=== PATIENT | male | born 1955 | race Caucasian/White ===

== ENCOUNTER 2017-01-01 07:00 | Day surgery (SDC) | payer OTHER ==
[~2017-01-01] VITALS: Ht 180.3 cm; Wt 94.8 kg
[~2017-01-01 07:00] MED LIST: TYLENOL WITH C1 EACH PO
--- NOTE | 2017-01-01 12:52 | NUR ---
01/01/17 Rosaura2 Gerardo Alcala 3 VIEW X-RAY OF THE LEFT FOOT DONE IN PACU.
--- NOTE | 2017-01-01 12:53 | NUR ---
PT RESTING IN BED, ALERT AND ORIENTED. HIS ZEYNEP IS IN SUPPORT. THEY BOTH SEEMED PREPARED, PT SAID HE WAITED TOO LONG. KNOWS HE WILL BE LAID UP FOR SOME TIME WITH BUNIONECTOMY. REQUESTED PRAYER, WILL FOLLOW NEEDED
--- NOTE | 2017-01-08 10:01 | OR ---
[facility] [address], [place] [address] Signed DATE OF PROCEDURE: 01/01/17 OPERATING SURGEON: Jack Beaver DPM. SERVICE DESK LEAD SURGEON: Lorraine Chen DPM. PREOPERATIVE DIAGNOSIS: Hallux valgus with bunion deformity, left foot. POSTOPERATIVE DIAGNOSIS: Hallux valgus with bunion deformity, left foot. ANESTHESIA: IV general. ASSOCIATE VETERINARIAN: Wiley Riley CRNA. SPECIMEN TO PATHOLOGY: None. PROCEDURE PERFORMED: Lapidus-type Bunionectomy, left foot. DESCRIPTION OF PROCEDURE The patient was brought to the operating room and placed on the table in the supine position. A regional block in the left lower extremity had already been performed. Anesthesia department administered IV sedation and then a local block was given to the left foot using a total of 10 mL of 1:1 mixture, 0.5% Ropivacaine plain and 2% Lidocaine plain. The left leg and foot were then prepped and draped in the usual sterile manner and an Esmarch was used for hemostasis. Attention was initially directed to the dorsal/medial aspect of the left 1st metatarsophalangeal joint where a linear longitudinal incision was made starting on the hallux and extending up to the midfoot just past the 1st metatarsal-cuneiform joint. The incision was initially full-thickness through the dermis, distally 1 cm medial to the extensor hallucis longus tendon at the MPJ level and shifting over to be approximately adjacent to the tendon at the proximal end of the incision. The dissection was deepened through subcutaneous tissue using careful dissection and cautery as necessary for hemostasis. Once at the level of joint capsule and deep fascia at the 1st metatarsophalangeal joint, an incision was made to open the joint. The soft tissues were then reflected medially to expose the medial bony prominence at the 1st metatarsal head and power instrumentation was then used to resect the bony prominence at this site removing approximately 2 mm of bone. At this time, the attention was directed to the 1st intermetatarsal space where a lateral release was performed. This appeared to provide a significant amount of correction for the very tight position at the joint with the hallux valgus position. Electronically Signed By: JACK BEAVER DPM 01/08/17 1001 PATIENT NAME: TONJA PEÑA OPERATIVE REPORT DATE OF : 53 PHYSICIAN: JACK BEAVER DPM REPORT #: [id number] REPORT IS CONFIDENTIAL AND NOT TO BE RELEASED WITHOUT AUTHORIZATION [facility] [address], [place] [address] Signed Attention was then directed proximally to the 1st metatarsal-cuneiform joint area. Dissection was deepened at this area using careful dissection and cautery as necessary for hemostasis. Once at the level of the joint, soft tissues were reflected medially and laterally to fully expose the dorsal and medial aspects of the joint. A joint distractor was then used to open the joint, then a combination of power and hand instrumentation used to resect cartilage and a small amount of bone from the joint surfaces in preparation for joint fusion. The lateral half or two-thirds of the joint was resected using power instrumentation. At the medial portion of the joint, the cartilage was denuded using hand instrumentation and then the joint surfaces drilled using a 1.6 mm K-wire to promote bone bleeding and bone healing to this area. The joint was then reapproximated and noted to have adequate bony apposition for fusion of the joint, then secured temporarily with K-wires and the position checked with intraoperative fluoroscopy. The position and alignment deemed appropriate, then the plate and screws were placed medially over the 1st metatarsal-cuneiform joint for joint fusion. During the process of placing screws and plate, intraoperative fluoroscopy was used to check position, then this was again confirmed once all of the hardware was installed. At this time, the surgical site was irrigated with copious amounts of normal saline. Then, deep soft tissues closed using 3-0 Vicryl. At this time, the extensor tendon was noted to be extremely tight causing deformity to the hallux and contracture at the MPJ, so it was deemed necessary at this time to perform a tendon lengthening, and a Z-lengthening then performed to the extensor hallucis longus tendon adding about 1-1.5 cm in length. The tendon was then secured with 3-0 Vicryl as well. Subcutaneous tissues closed using 4-0 Vicryl and skin closed using skin clara. Dressings were then applied consisting of Adaptic, Betadine-soaked gauze, dry gauze, Flexicon and Coban. The dressings were used to splint the position to the hallux and maintain the correction. INTRAOPERATIVE COMPLICATIONS: None. ESTIMATED BLOOD LOSS: Less than 5 mL. The patient tolerated the procedure and the anesthesia well and left the operating room with vital signs stable and vascular status intact to the left foot as evidenced by hyperemia with removal of the Esmarch. BETY Hernandez/Angel Electronically Signed By: JACK BEAVER DPM 01/08/17 1001 PATIENT NAME: TONJA PEÑA OPERATIVE REPORT DATE OF : 53 PHYSICIAN: JACK BEAVER DPM REPORT #: [id number] REPORT IS CONFIDENTIAL AND NOT TO BE RELEASED WITHOUT AUTHORIZATION [address] [place], [place] [address] Signed /[id number] cc: Jack Cherry MD Electronically Signed By: JACK BEAVER DPM 01/08/17 1001 PATIENT NAME: TONJA PEÑA OPERATIVE REPORT DATE OF : 53 PHYSICIAN: JACK BEAVER DPM REPORT #: [id number] REPORT IS CONFIDENTIAL AND NOT TO BE RELEASED WITHOUT AUTHORIZATION
== END 2017-01-01 13:41 | disposition home or self-care (01) ==
LOC: OPS 07:00 → DS 07:00 → OPS 08:45 → DS 08:45 → OPS 13:41
PROVIDERS: Podiatrist Foot Surgery
PROC: 0SGL0ZZ (ICD-10-PCS; principal; 2017-01-01 08:45)
DX: M21.612 Bunion of left foot (principal); M20.12 Hallux valgus (acquired), left foot; M21.072 Valgus deformity, not elsewhere classified, left ankle
CPT/HCPCS: 01480; 64445; 64447; 73620; 73630; 76942; C1713; C1769; J0690; J0735; J1100; J1885; J2250; J2405; J2704; J2765; J2795; J3010; J7120

== ENCOUNTER 2018-12-14 14:53 | Emergency (ER) | payer BC ==
[~2018-12-14] VITALS: Ht 180.3 cm; Wt 94.8 kg
== END 2018-12-14 17:29 | disposition home or self-care (01) ==
LOC: ED 14:53
DX: M25.512 Pain in left shoulder (principal)
CPT/HCPCS: 73030; 99283

== ENCOUNTER 2019-09-13 06:25 | Day surgery (SDC) | payer MEDICARE, OTHER ==
[~2019-09-13] VITALS: Ht 180.3 cm; Wt 95.2 kg
[~2019-09-13 06:25] MED LIST changes: +ASPIRIN81 MG PO; +FLOMAX0.4 MG PO; +SAW PALMETTO160 MG PO
--- NOTE | 2019-09-13 08:33 | NUR ---
09/13/19 0832 Henny,Eliza 0813 PT ARRIVED TO PACU ON 4L VIA MASK, PT WAKES EASILY TO TACTILE STIMULI. PT REORIENTED TO PACU. PT DIAPHORETIC AND COOL AIR USED, PT REPROTS "THAT FEELS GOOD." 0815 PT ABD FIRM AND RN ENCOURAGES PT TO PASS GAS. 0820 PT PASSING AIR/GAS AND REPORTS FEELING "A TIGHT BELLY." 0823 MD AT BEDSIDE. 0825 O2 TURNED OFF.
--- NOTE | 2019-09-13 08:38 | NUR ---
PT IS ALERT, ORIENTED AND SUPPORTED BY HIS ZEYNEP. PT HAS HAD PREVIOUS SCOPES, SEEMED TO DEAL WITH PREP APPROPRIATELY. PT'S QUESTIONS ADKED AND ANSWERED. OR STAFF IN FOR PT-GAVE BLESSING
--- NOTE | 2019-09-13 09:29 | NUR ---
PT IS BACK TO DS FROM PACU. HE IS HAVING SOME ABDOMINAL PAIN AND DISTENTION FOLLOWING HIS COLONOSCOPY. DR. AMIN WOULD LIKE HIM TO STAY A LITTLE LONGER TO MAKE SURE THE DISTENTION AND PAIN GET BETTER/RESOLVE.
--- NOTE | 2019-09-13 10:43 | NUR ---
PT IS GIVEN VERBAL DC INSTRUCTIONS WITH PRESENT. THEY BOTH VERBALIZE UNDERSTANDING. PT IS EDUCATED ON HOW TO BEST DRESS HIMSELF. HE IS TAKEN TO VEHICLE VIA WC.
--- NOTE | 2019-09-14 10:11 | OR ---
[facility] [address], [place] [address] Signed DATE OF OPERATION: 09/13/2019 SURGEON: Snow Amin MD PREOPERATIVE DIAGNOSIS: History of tubulovillous adenoma, 2016. POSTOPERATIVE DIAGNOSES: 1. No evidence of polyps. 2. Sigmoid diverticulosis. 3. Mild proctitis. PROCEDURE: Total colonoscopy to cecum with biopsy of rectum. ANESTHESIA: Intravenous sedation, fentanyl 100 mcg, Versed 8 mg. INDICATION: This 64-year-old white man is a patient of Dr. Nieto and underwent colonoscopy by me in 2015, at which time he was noted to have a tubulovillous adenoma. This was excised fully. He was recommended to have colonoscopy three years later, but declined. He now presents for surveillance colonoscopy. He understands the risks of bleeding, infection, perforation and wished to proceed. He has no known family history of colon cancer. He is symptom free. FINDINGS: The prep was adequate. Complete colonoscopy was undertaken to the cecum without question. He had numerous diverticula of the sigmoid and left colon. He had mild proctitis. There was no sign of recurrent polyp. DESCRIPTION OF PROCEDURE: The patient was brought into the endoscopy suite and placed in lateral decubitus position, given intravenous sedation to the point of slurred speech and nystagmus. Digital rectal examination was normal. An Olympus video colonoscope was passed in the rectum and manipulated into the rectum and manipulated throughout the colon. Diverticula were noted in the sigmoid and left colon. The scope was ultimately advanced to the cecum. The ileocecal valve and appendiceal orifice were normal. Scope was withdrawn from that point. Examination Electronically Signed By: SNOW AMIN MD 09/14/19 1011 PATIENT NAME: TONJA PEÑA OPERATIVE REPORT DATE OF : 53 REPORT #: [id number] PHYSICIAN: SNOW AMIN MD PCP: NEGIN NIETO MD REPORT IS CONFIDENTIAL AND NOT TO BE RELEASED WITHOUT AUTHORIZATION [facility] [address] [place] [id number] Signed throughout showed no sign of abnormality other than the diverticula. Retroflexed view did confirm mild proctitis. He also had internal hemorrhoids, which were not bleeding. The scope was removed after biopsy of the rectum undertaken. The patient was taken to the recovery room in good condition. CONCLUDING DIAGNOSIS: 1. Mild proctitis. 2. Diverticulosis. 3. No evidence of recurrent polyps. PLAN: Recommend a repeat colonoscopy in 10 years sooner if clinically indicated. He will return to the ongoing care of Dr. Nieto. MD JO Gutierrez/GIOVANNIL /[id number] cc: Negin Nieto MD Copies: NEGIN NIETO MD ~ Electronically Signed By: SNOW AMIN MD 09/14/19 1011 PATIENT NAME: TONJA PEÑA OPERATIVE REPORT DATE OF : 53 REPORT #: [id number] PHYSICIAN: SNOW AMIN MD PCP: NEGIN NIETO MD REPORT IS CONFIDENTIAL AND NOT TO BE RELEASED WITHOUT AUTHORIZATION
--- NOTE | 2019-09-14 13:17 | PATH ---
[facility] [address] [place], [place] [address] Signed SPECIMEN(S): A RECTUM SPECIMEN SOURCE: A. RECTUM CLINICAL HISTORY: Colonoscopy. History of polyps. Postop: Mild proctitis and diverticulosis. MICROSCOPIC DESCRIPTION: Histologic sections of all submitted blocks are examined by light microscopy. These findings, together with the gross examination, support the pathologic diagnosis. FINAL PATHOLOGIC DIAGNOSIS: Rectum, biopsy: - Rectal mucosa with mucosal lymphoid aggregate. - Negative for active, chronic, or microscopic colitis. - Negative for dysplasia or malignancy. NAL:emb:C2NR GROSS DESCRIPTION: The specimen, labeled "GW, 1," and designated on the requisition "rectum," is received in formalin and consists of one naidu soft tissue fragment with vegetative matter that measures 0.3 cm in greatest dimension. The specimen is entirely submitted in cassette (A1). AT (under the direct supervision of a pathologist) The Gross Description was prepared using a voice recognition system. The report was reviewed for accuracy; however, sound-alike word errors, addition and/or deletions may occur. If there is any question about this report, please contact Client Services. PERFORMING LABORATORY: The technical component was performed by [facility], [address] [place] [id number] (Palletizer Operator: Nicolle Jenkins MD; CLIA# [id number]). [facility], [address] [address] (CLIA# [id number]). Diagnostician: Carrie Fine MD Pathologist Electronically Signed 09/14/2019 PATIENT NAME: TONJA PEÑA PATHOLOGY DATE OF : 53 REPORT #: [id number] PHYSICIAN: JEN PATHOLOGY PCP: NEGIN NIETO MD REPORT IS CONFIDENTIAL AND NOT TO BE RELEASED WITHOUT AUTHORIZATION [address] [address] Signed Copies: ~ PATIENT NAME: TONJA PEÑA PATHOLOGY DATE OF : 53 REPORT #: [id number] PHYSICIAN: [facility] PCP: NEGIN NIETO MD REPORT IS CONFIDENTIAL AND NOT TO BE RELEASED WITHOUT AUTHORIZATION
== END 2019-09-13 10:45 | disposition home or self-care (01) ==
LOC: OPS 06:25 → DS 06:25 → OPS 06:45
PROVIDERS: Surgery
PROC: 0DBP8ZX Excision of Rectum, Via Natural or Artificial Opening Endoscopic, Diagnostic (ICD-10-PCS; principal; 2019-09-13 06:45)
DX: Z12.11 Encounter for screening for malignant neoplasm of colon (principal); K64.8 Other hemorrhoids; K57.30 Diverticulosis of large intestine without perforation or abscess without bleeding; K21.9 Gastro-esophageal reflux disease without esophagitis; Z86.010 Personal history of colon polyps; Z79.899 Other long term (current) drug therapy; Z79.82 Long term (current) use of aspirin
CPT/HCPCS: 99153; G0500; J0690; J2250; J3010; J7121